=== PATIENT | male | born 1960 | race American Indian/Alaskan Native ===

== ENCOUNTER 2016-10-09 13:47 | Emergency (ER) | payer SELFPAY ==
[2016-10-09] MEDS ORDERED: NACL 0.9% 1000 ML 1,000 ML IV ONE (15:04)
--- NOTE | 2016-10-09 15:19 | Emergency Department Report ---
Entered by MANGO BIRD, acting as scribe for ERIN SHEPPARD PA. Chief Complaint: GI Bleed Stated Complaint: HERNIA PAIN Time Seen by Provider: 10/09/16 14:58 - HPI History of Present Illness: 55 year old male with PMHx of hemorrhoids presents to the ED with c/o serve rectum pain since this morning. Patient states he had a bowel movement this morning and hemorrhoid came out with pain and mild bleeding. He usually have similar symptoms but it was worse this morning. Patient reports swelling and constipation but denies nausea, vomiting, scrotal pain, and abdominal pain. No Hx of HTN. - ROS Review of Systems: Reports bowel movement with hemorrhoid Denies nausea, vomiting, scrotal pain, and abdominal pain Reports swelling and constipation - Exam Vital Signs: Vital Signs 10/09/16 14:28 Temperature 98.5 F Pulse Rate 82 Respiratory 20 Rate Blood Pressure 189/115 O2 Sat by Pulse 100 Oximetry Physical Exam: ABDOMEN: Soft, nondistended. Nontender to palpation on all quadrants. GENERAL: Patient is alert and oriented x 3. No apparent distress, normal gait, atraumatic. HEAD: Head is normocephalic and atraumatic. MSE screening note: Focused history and physical exam performed. Due to findings the following was ordered: Type and screen, EKG, outreach and education social worker, saline lock, BMP, CBC, Partial thromboplastin, prothrombin time was ordered for patient. ED Disposition for MSE Condition: Stable Forms: Accompanied Note This documentation as recorded by the scribePELON PEARL,accurately reflects the service I personally performed and the decisions made by ,ERIN SHEPPARD PA.
[2016-10-09 16:27] LABS: Anion Gap 18 mmol/L; Blood Urea Nitrogen 14 mg/dL (9-20); Calcium 9.8 mg/dL (8.4-10.2); Carbon Dioxide 27 mmol/L (22-30); Chloride 96.9 mmol/L (98-107); Glucose 103 mg/dL (75-100); Potassium 4.4 mmol/L (3.6-5.0); Sodium 137 mmol/L (137-145)
[2016-10-09 16:32] LABS: INR 0.94 (0.87-1.13)
[2016-10-09 16:33] LABS: Partial Thromboplastin Time 24.1 Sec. (24.2-36.6)
[2016-10-09] MEDS ORDERED: SUBLIMAZE IV ONE (16:50)
--- NOTE | 2016-10-09 17:12 | Emergency Department Report ---
ED General Adult HPI - General Chief complaint: GI Bleed Stated complaint: HERNIA PAIN / rectal pain Time Seen by Provider: 10/09/16 14:58 Source: patient Mode of arrival: Ambulatory Limitations: No Limitations - History of Present Illness MD Complaint: rectal pain and swelling -: Gradual Location: buttocks Radiation: non-radiation Severity scale (0 -10): 7 Quality: burning, aching Consistency: constant Improves with: none Worsens with: none Associated Symptoms: denies: confusion, chest pain, cough, diaphoresis, fever/ chills, headaches, loss of appetite, malaise, nausea/vomiting, rash Treatments Prior to Arrival: none - Related Data Previous Rx's Medication Instructions Recorded Last Taken Type Hydrocortisone/Pramoxine 10 gm RC BID #2 foam 10/09/16 Unknown Rx [Proctofoam-Hc Foam] Allergies Allergy/AdvReac Type Severity Reaction Status Date / Time No Known Allergies Allergy Unverified 10/09/16 14:28 ED Review of Systems ROS: Stated complaint: HERNIA PAIN Other details as noted in HPI Comment: All other systems reviewed and negative ED Past Medical Hx - Past Medical History Previous Medical History?: Yes Additional medical history: Hemorrhoids - Surgical History Past Surgical History?: Yes Additional Surgical History: Right foot - Social History Smoking Status: Never Smoker Substance Use Type: Other - Medications Home Medications: Home Medications Medication Instructions Recorded Confirmed Last Taken Type Hydrocortisone/Pramoxine 10 gm RC BID #2 foam 10/09/16 Unknown Rx [Proctofoam-Hc Foam] ED Physical Exam - General Limitations: No Limitations General appearance: alert, in no apparent distress - Head Head exam: Present: atraumatic, normocephalic - Eye Eye exam: Present: normal appearance, PERRL, EOMI - ENT ENT exam: Present: mucous membranes moist - Neck Neck exam: Present: normal inspection - Respiratory Respiratory exam: Present: normal lung sounds bilaterally. Absent: respiratory distress - Cardiovascular Cardiovascular Exam: Present: regular rate, normal rhythm. Absent: systolic murmur, diastolic murmur, rubs, gallop - GI/Abdominal GI/Abdominal exam: Present: soft, normal bowel sounds. Absent: distended, tenderness, guarding, rebound, hyperactive bowel sounds, hypoactive bowel sounds , organomegaly, mass - Rectal Rectal exam: Present: normal rectal tone, heme (+) stool, hemorrhoids, mass, tenderness - exam: Present: normal inspection External exam: Present: normal external exam - Extremities Exam Extremities exam: Present: normal inspection - Back Exam Back exam: Present: normal inspection - Neurological Exam Neurological exam: Present: alert, oriented X3 - Psychiatric Psychiatric exam: Present: normal affect, normal mood - Skin Skin exam: Present: warm, dry, intact, normal color. Absent: rash ED Course Vital Signs 10/09/16 14:28 Temperature 98.5 F Pulse Rate 82 Respiratory 20 Rate Blood Pressure 189/115 O2 Sat by Pulse 100 Oximetry ED Medical Decision Making - Lab Data Result diagrams: 10/09/16 17:09 10/09/16 15:35 - Medical Decision Making patient doing well after fentanyl given and i was able to reduce his hemorrhoids with no complications. Critical care attestation.: If time is entered above; I have spent that time in minutes in the direct care of this critically ill patient, excluding procedure time. ED Disposition Clinical Impression: Acute hemorrhoid Disposition: DC-01 TO HOME OR SELFCARE Is pt being admited?: No Does the pt Need Aspirin: No Condition: Good Prescriptions: Hydrocortisone/Pramoxine [Proctofoam-Hc Foam] 10 gm RC BID #2 foam Forms: Accompanied Note Time of Disposition: 17:47
[2016-10-09 17:20] LABS: Hematocrit 41.7 % (35.5-45.6); Hemoglobin 13.6 gm/dl (11.8-15.2); Mean Corpuscular HGB Conc 33 % (32-34); Mean Corpuscular Hemoglobin 27 pg (28-32); Mean Corpuscular Volume 83 fl (84-94); Platelet Count 241 K/mm3 (140-440); Red Blood Count 5.04 M/mm3 (3.65-5.03); White Blood Count 6.2 K/mm3 (4.5-11.0)
[2016-10-09] MEDS ORDERED: DILAUDID ONE (18:14)
[2016-10-09] MEDS ORDERED: DILAUDID IV ONE (18:19)
[2016-10-09 19:07] VITALS: BP 157/86
== END 2016-10-09 19:07 | disposition home or self-care (01) ==
LOC: ED 13:47
DX: K64.8 Other hemorrhoids (principal)
CPT/HCPCS: 36415; 80048; 85025; 85610; 85730; 96374; 96375; 99284; J1170; J3010

== ENCOUNTER 2016-11-01 12:42 | Day surgery (SDC) | payer OTHER ==
[2016-11-01] MEDS ORDERED: NACL 0.9% 1000 ML 1,000 ML IV SCH (14:00)
--- NOTE | 2016-11-01 14:08 | Anesthesia Day of Surgery ---
Anesthesia Day of Surgery - Day of Surgery Patient Examined: Yes Patient H&P Reviewed: Yes Patient is NPO: Yes
[2016-11-01] MEDS ORDERED: DIPRIVAN 10 MG/ML IV ONE ×2 (14:09)
--- NOTE | 2016-11-01 14:09 | Anesthesia Consultation ---
Anesthesia Consult and Med Hx Date of service: 11/01/16 - Airway Anesthetic Teeth Evaluation: Good, Caps (upper front teeth) ROM Head & Neck: Adequate Mental/Hyoid Distance: Adequate Mallampati Class: Class II Intubation Access Assessment: Probably Good - Pulmonary Exam CTA: Yes - Cardiac Exam Cardiac Exam: RRR - Pre-Operative Health Status ASA Pre-Surgery Classification: ASA2 Proposed Anesthetic Plan: MAC - Pulmonary Hx Smoking: No Hx Asthma: No - Cardiovascular System Hx Hypertension: Yes (diagnosed 2 weeks ago) Hx Heart Attack/AMI: No - Central Nervous System Hx Seizures: No CVA: No - Endocrine Hx Renal Disease: No Hx Liver Disease: No Hx Non-Insulin Dependent Diabetes: No - Hematic Hx Anemia: No Hx Sickle Cell Disease: No - Other Systems Hx Obesity: No - Additional Comments Anesthesia Medical History Comments: NAC
[2016-11-01] MEDS ORDERED: WATER FOR IRRIG STERILE ONE (14:36)
[2016-11-01] MEDS ORDERED: INFANTS' GAS RELIEF PO ONE (14:36)
[2016-11-01] MEDS ORDERED: WATER FOR IRRIG STERILE IR ONE (14:36)
--- NOTE | 2016-11-01 14:41 | History and Physical Report ---
History of Present Illness Date of examination: 11/01/16 Date of admission: 11/01/2016 Chief complaint: Colorectal cancer screening. History of present illness: History of present illness: Patient is a 56-year-old male referred for colorectal cancer screening. Patient also has been having significant anorectal discomfort and blood in stool. [place] to be due to symptomatic internal hemorrhoids. He denies any other complaints except for significant rectal pain. Past History Past Medical History: hypertension, hyperlipidemia Medications and Allergies Allergies Allergy/AdvReac Type Severity Reaction Status Date / Time No Known Allergies Allergy Verified 11/01/16 13:46 Home Medications Medication Instructions Recorded Confirmed Last Taken Type HYDROcodone/APAP 10-325 [[place] 1 each PO BID #14 tablet 10/09/16 11/01/16 Unknown Rx 10/325] Hydrocortisone/Pramoxine 10 gm RC BID #2 foam 10/09/16 11/01/16 Unknown Rx [Proctofoam-Hc Foam] Lidocaine CREAM 1 syr [place] PRN PRN 11/01/16 11/01/16 10/30/16 History Sulfamethoxazole-Tmp Ss Tablet 1 tab PO BID 11/01/16 11/01/16 11/01/16 History Tramadol HCl 50 mg PO PRN PRN 11/01/16 11/01/16 11/01/16 History amLODIPine 5 mg PO DAILY 11/01/16 11/01/16 10/31/16 History Active Meds: Active Medications Sodium Chloride (Nacl 0.9% 1000 Ml) 1,000 mls @ 50 mls/hr IV DIRECT BENTLEY Last Admin: 11/01/16 14:24 Dose: 50 mls/hr Review of Systems All systems: negative Exam - Constitutional Vitals: Temp Pulse Resp BP Pulse Ox 98.6 F 78 14 164/94 97 11/01/16 14:07 11/01/16 14:07 11/01/16 14:07 11/01/16 14:07 11/01/16 14:07 General appearance: Present: no acute distress, well-nourished - EENT Eyes: Present: PERRL ENT: hearing intact, clear oral mucosa - Neck Neck: Present: supple, normal ROM - Respiratory Respiratory effort: normal Respiratory: bilateral: CTA - Cardiovascular Heart Sounds: Present: S1 & S2. Absent: rub, click - Extremities Extremities: pulses symmetrical, No edema Peripheral Pulses: within normal limits - Abdominal General gastrointestinal: Present: soft, non-tender, non-distended, normal bowel sounds Male genitourinary: Present: normal - Integumentary Integumentary: Present: clear, warm, dry - Musculoskeletal Musculoskeletal: gait normal, strength equal bilaterally - Psychiatric Psychiatric: appropriate mood/affect, intact judgment & insight - Neurologic Neurologic: CNII-XII intact, moves all extremities Assessment and Plan Colorectal cancer screening History of recurrent anorectal discomfort and rectal bleeding. Plan. Full colonoscopy with possible hemorrhoidal band ligation.
--- NOTE | 2016-11-01 15:13 | Operative Report ---
Operative Report Operative Report: Date of procedure: 11/01/2016 Procedure: Colonoscopy Attending physician: Bienvenido Nayak MD Puncher And Fastener: Bienvenido Nayak MD Indication: Patient is a 56-year-old male referred for colorectal cancer screening. A colonoscopy is done essentially for screening. In addition, patient also complains of anorectal discomfort and pain. This colonoscopy therefore serves to evaluate patient in hopes of directing treatment based on the findings. Consent: Informed consent was obtained after advising the patient and family regarding nature of this procedure, its indications, potential benefits as well as possible complications including but not limited to bleeding perforation and adverse reaction to medication, infection as well as other cardiopulmonary complications. An informed written and verbal consent was then obtained after due opportunity was provided for questions and answers. Monitoring: Patient was monitored continuously with pulse oximetry and electrocardiographic recordings as well as blood pressure recordings. Vital signs remained stable throughout this procedure with no untoward events. Preoperative assessment: Patient was assessed immediately prior to this procedure for capacity to tolerate monitored anesthesia care and moderate sedation as well as general anesthesia. Patient's ASA classification is 2, Mallampati class is 2, Hyomental distance is 3. Instrument: Fortify Softwaren videocolonoscope colonoscope Medications: Propofol given intravenously in divided doses for details please refer to the anesthesia records. Description of procedure: Patient was placed in the left lateral decubitus position after achieving sedation, a digital rectal examination was performed following which the colonoscope was introduced into the anal verge and advanced to the cecum which was identified by the cecal valve, the appendiceal orifice, as well as by the cecal strap and direct transillumination. The colonoscope was subsequently withdrawn with careful inspection of all mucosal surfaces. Patient tolerated this procedure well and was subsequently taken to the recovery room. The following findings were noted. Findings: The cecum was normal. Ascending colon was normal. Transverse colon was normal. Descending colon was normal. Sigmoid colon was normal. The rectum was normal. At the anal verge, patient had prominent external hemorrhoids that is thrombosed. Patient also had large friable prolapsing internal hemorrhoids. Impression: Large friable prolapsing internal hemorrhoids. Thrombosed external hemorrhoids. Otherwise normal colonoscopy. Plan: Continue daily sitz baths Anusol HC suppositories per rectum daily at bedtime 5% lidocaine ointment per rectum every 6 hours as needed. High-fiber diet. Refer patient to colorectal surgery for sharp excision of the external hemorrhoids and also hemorrhoidectomy for the Internal hemorrhoids.
--- NOTE | 2016-11-01 15:14 | Discharge Summary ---
Short Stay Discharge Plan Activity: advance as tolerated Weight Bearing Status: Weight Bear as Tolerated Diet: regular Follow up with: JYOTI CHAUDHARY MD [Primary Care Provider] - 7 Days
[2016-11-01 15:22] VITALS: BP 137/90
--- NOTE | 2016-11-01 16:38 | Post Anesthesia Evaluation ---
- Post Anesthesia Evaluation Patient Participated: Yes Airway Patent: Yes Stable Respiratory Function: Yes Nausea/Vomiting: No Temp > 96.8F: Yes Pain Manageable: Yes Adequeate Hydration: Yes Anesthesia Complications: No Block Receding Appropriately: Not Applicable Patient on Ventilator: No
== END 2016-11-01 12:43 | disposition home or self-care (01) ==
LOC: GIO 12:42
PROVIDERS: ATTEND Internal Medicine Gastroenterology
DX: K64.5 Perianal venous thrombosis (principal); K64.8 Other hemorrhoids; I10 Essential (primary) hypertension; E78.5 Hyperlipidemia, unspecified; Z79.899 Other long term (current) drug therapy
CPT/HCPCS: 45378; J2704; J7030

== ENCOUNTER 2021-04-14 23:24 | Emergency (ER) | payer OTHER ==
[2021-04-15 02:25] VITALS: BP 170/89
[2021-04-15] MEDS ORDERED: LIDOCAINE (2%) 20 MG/1 ML VIAL 20 ML MDV INFILTRATI STA (04:10)
--- NOTE | 2021-04-15 06:28 | Emergency Department Report ---
ED General Adult HPI - General Chief complaint: Wound/Laceration Stated complaint: Head injury Time Seen by Provider: 04/15/21 04:10 Source: patient Mode of arrival: Ambulatory Limitations: No Limitations - History of Present Illness Initial comments: 60-year-old male standing on a chair trying to work with a light and slipped lost balance and upon falling down his top of his scalp hit the corner of the desk in a swiping light fashion resulting in a degloving type scalp injury. To the caudal aspect creating a flap like laceration with increased amount of bleeding no loss of consciousness, no neck pain, no blurred vision, no dizziness. Location: head Radiation: non-radiation Severity scale (0 -10): 3 Consistency: constant Improves with: none Worsens with: none Associated Symptoms: denies: loss of appetite, malaise, shortness of breath, syncope - Related Data Home Medications Medication Instructions Recorded Confirmed Last Taken Lidocaine CREAM 1 syr [place] PRN PRN 11/01/16 11/01/16 10/30/16 Sulfamethoxazole-Tmp Ss Tablet 1 tab PO BID 11/01/16 11/01/16 11/01/16 Tramadol HCl 50 mg PO PRN PRN 11/01/16 11/01/16 11/01/16 amLODIPine 5 mg PO DAILY 11/01/16 11/01/16 10/31/16 Previous Rx's Medication Instructions Recorded Last Taken Type HYDROcodone/APAP 10-325 [[place] 1 each PO BID #14 tablet 10/09/16 Unknown Rx 10/325] Hydrocortisone/Pramoxine 10 gm RC BID #2 foam 10/09/16 Unknown Rx [Proctofoam-Hc Foam] Acetamin/Codeine 120-12Mg/5 ml 5 ml PO TID PRN #4 oz 04/15/21 Unknown Rx [Tylenol/Codeine] Acetaminophen/Codeine [Tylenol #3] 1 tab PO Q6H PRN #15 tab 04/15/21 Unknown Rx Chlorhexidine Gluconate [Hibiclens] 10 ml TP BID #240 liquid 04/15/21 Unknown Rx Allergies Allergy/AdvReac Type Severity Reaction Status Date / Time No Known Allergies Allergy Verified 11/01/16 13:46 ED Review of Systems ROS: Stated complaint: Head injury Other details as noted in HPI Comment: All other systems reviewed and negative ED Past Medical Hx - Past Medical History Hx Hypertension: Yes Hx Heart Attack/AMI: No Hx Liver Disease: No Hx Renal Disease: No Hx Sickle Cell Disease: No Hx Seizures: No Hx Asthma: No Additional medical history: Hemorrhoids - Surgical History Additional Surgical History: Right foot - Social History Smoking Status: Never Smoker - Medications Home Medications: Home Medications Medication Instructions Recorded Confirmed Last Taken Type HYDROcodone/APAP 10-325 [[place] 1 each PO BID #14 tablet 10/09/16 11/01/16 Unknown Rx 10/325] Hydrocortisone/Pramoxine 10 gm RC BID #2 foam 10/09/16 11/01/16 Unknown Rx [Proctofoam-Hc Foam] Lidocaine CREAM 1 syr [place] PRN PRN 11/01/16 11/01/16 10/30/16 History Sulfamethoxazole-Tmp Ss Tablet 1 tab PO BID 11/01/16 11/01/16 11/01/16 History Tramadol HCl 50 mg PO PRN PRN 11/01/16 11/01/16 11/01/16 History amLODIPine 5 mg PO DAILY 11/01/16 11/01/16 10/31/16 History Acetamin/Codeine 120-12Mg/5 ml 5 ml PO TID PRN #4 oz 04/15/21 Unknown Rx [Tylenol/Codeine] Acetaminophen/Codeine [Tylenol #3] 1 tab PO Q6H PRN #15 tab 04/15/21 Unknown Rx Chlorhexidine Gluconate [Hibiclens] 10 ml TP BID #240 liquid 04/15/21 Unknown Rx ED Physical Exam - General Limitations: No Limitations General appearance: alert, in no apparent distress - Head Head exam: Present: atraumatic, normocephalic, other - Expanded Head Exam Expanded Head exam: Present: laceration 1 - Arc flap-like full-thickness linear laceration to the scalp bleeding - Eye Eye exam: Present: normal appearance, PERRL, EOMI, scleral icterus. Absent: nystagmus Pupils: Present: normal accommodation - ENT ENT exam: Present: normal exam, normal orophraynx, mucous membranes moist, TM's normal bilaterally - Neck Neck exam: Present: normal inspection, full ROM. Absent: tenderness, meningismus - Respiratory Respiratory exam: Present: normal lung sounds bilaterally. Absent: respiratory distress - Cardiovascular Cardiovascular Exam: Present: regular rate, normal rhythm. Absent: systolic murmur, diastolic murmur, rubs, gallop - GI/Abdominal GI/Abdominal exam: Present: soft, normal bowel sounds - Rectal Rectal exam: Present: deferred - Extremities Exam Extremities exam: Present: normal inspection - Back Exam Back exam: Present: normal inspection - Neurological Exam Neurological exam: Present: alert, oriented X3 - Psychiatric Psychiatric exam: Present: normal affect, normal mood - Skin Skin exam: Present: warm, dry, intact, normal color. Absent: rash ED Course Vital Signs 04/15/21 02:19 Temperature 98.3 F Pulse Rate 62 Respiratory 18 Rate Blood Pressure 170/89 [Right] O2 Sat by Pulse 99 Oximetry - Laceration /Wound Repair Head Wound Location: head Wound Length (cm): 13 Wound's Depth, Shape: irregular, flap Anesthesia: 1% Lidocaine Volume Anesthetic (ccs): 5 Wound Debrided: moderate Wound Repaired With: sutures Suture Size/Type: 3:0 Number of Sutures: 8 Layer Closure?: No ([place] use joana as well) ED Medical Decision Making - Medical Decision Making 60-year-old male with a scalp flap type de Gramont laceration requiring m echanical coat closure with utilization of joana and sutures. Initially joana were was not in the entire wound however in the frontal aspect of the wound created a significant overlap even with revising the edges. In the event in the effort to decrease currently and decreased bleeding and infection sick joana were removed and sutures were placed in the in the location Critical care attestation.: If time is entered above; I have spent that time in minutes in the direct care of this critically ill patient, excluding procedure time. ED Disposition Clinical Impression: Scalp laceration Disposition: 01 HOME / SELF CARE / HOMELESS Is pt being admited?: No Does the pt Need Aspirin: No Condition: Stable Instructions: Laceration Care, Adult, Sutured Wound Care Additional Instructions: 60-year-old scalp laceration please follow-up with your doctor in 5 to 7 days to be evaluated for suture and staple removal. Prescriptions: Chlorhexidine Gluconate [Hibiclens] 10 ml TP BID #240 liquid Acetaminophen/Codeine [Tylenol #3] 1 tab PO Q6H PRN #15 tab PRN Reason: Pain Acetamin/Codeine 120-12Mg/5 ml [Tylenol/Codeine] 5 ml PO TID PRN #4 oz PRN Reason: Pain Referrals: LEE CHADWICK MD [Primary Care Provider] - 7-10 days
== END 2021-04-15 06:56 | disposition home or self-care (01) ==
LOC: ED 23:24
DX: S01.01XA Laceration without foreign body of scalp, initial encounter (principal); I10 Essential (primary) hypertension; W19.XXXA Unspecified fall, initial encounter; Y93.89 Activity, other specified; Y92.89 Other specified places as the place of occurrence of the external cause; Y99.8 Other external cause status
CPT/HCPCS: 12005; 99282; J3490